=== PATIENT | female | born 1980 | race African-American/Black ===

== ENCOUNTER 2017-06-25 13:23 | Emergency (ER) | payer OTHER ==
[2017-06-25 13:29] VITALS: BP 128/68; PULSE 76; TEMP 98; BMI 34.9
--- NOTE | 2017-06-25 14:19 | PDOC ---
History of Present Illness - General Chief Complaint: Vaginal Bleeding Stated Complaint: VAGINAL BLEEDING (12 WKS ) Time Seen by Provider: 06/25/17 13:58 History Source: Patient Exam Limitations: No Limitations - History of Present Illness Initial Comments: 06/25/17 14:08 36 year old female with no pmhx presented to the ED with 2 days history of vaginal bleeding. pt states that she notices some bleeding yesterday ess than tea spoon , black in coloe , she also mentioned that she saw streak of blood today morning mixed with urine. she reports slight abdominal pain last LLQ , sharp , local 07/05. Pt denies any headache, light headedness, dizziness, recent cold, N/V/D/C. pt denies nay chest pain , sob, cough, heart racing , pt denies nay urinary symptoms , no dysuria, no hematuria. no joint back , back pain or LE swelling. no fever no chills no recent cold. LMP is march , she follow up with Dr Aswhini Grant. previous pregnancies with no complications , full term vaginal deliver and one C- section. pt has an appointement with her commercial escrow officer on Tuesday. PMH: Uterois Fibroid PSH: x 1 Allergies: NKDA Meds: multivitamin with Iron Social: denies any smoking alcohol or drug abuse FH: none Vitals: Vital Signs Period Temp Pulse Resp BP Sys/Georges Pulse Ox Last 24 Hr 98 F 76 18 128/68 99 Physical Exam: General: well nourished in NAD Head: NC/AT , TANYA: MMM, ANIL , EOMI Lungs: CTA B/L , no wheezes, no crackles no accessory muscle use Heart:RRR, No MRG Abdomen: melissa , soft , distended non tender, normal active bowel sounds Neuro: no facial deficit, sensation intact . Legs: +2 DP , no edema Skin: warm and dry Psych: appropriate mood and effect Vaginal exam: streak blood less than tea spoon , black, OS is closed no cervical motion tenderness. 06/25/17 14:19 DD: R.O miscarriage, abruptio placenta unlikley , fibroid bleeding Work UP: CBC . cmp [facility] quantitative abdominal US 06/25/17 14:48 06/25/17 17:39 [place] [id number] Blood type is B positive pt will be discharged home and follow up with her PB/ field services director within one week to repeat BhCG and the US Past History - Past Medical History Allergies/Adverse Reactions: Allergies Allergy/AdvReac Type Severity Reaction Status Date / Time No Known Allergies Allergy Verified 06/25/17 13:29 Home Medications: Ambulatory Orders NK [No Known Home Medication] 12/20/15 Asthma: No Cancer: No Cardiac Disorders: No COPD: No Diabetes: No HTN: No Seizures: No Thyroid Disease: No - Immunization History Immunization Up to Date: Yes - Suicide/Smoking/Psychosocial Hx Smoking History: Never smoked Have you smoked in the past 12 months: No Hx Alcohol Use: No Drug/Substance Use Hx: No Substance Use Type: None Hx Substance Use Treatment: No *Physical Exam - Vital Signs Last Vital Signs Temp Pulse Resp BP Pulse Ox 98 F 76 18 128/68 99 06/25/17 13:26 06/25/17 13:26 06/25/17 13:26 06/25/17 13:26 06/25/17 13:26 ED Treatment Course - LABORATORY CBC & Chemistry Diagram: 06/25/17 15:15 06/25/17 15:15 *DC/Admit/Observation/Transfer Diagnosis at time of Disposition: Threatened in early - Discharge Dispostion Disposition: HOME Admit: No - Referrals - Patient Instructions Additional Instructions: You presented to the ED due to vaginal bleeding , [place] [id number] suitable for gestational age . There is no change in management for now Please follow up with your patient appointment coordinator within one week to repeat BHCG and sonogram, If you develop sever bleeding , fever , sever abdominal pain return to emergency room as soon as possible. - Post Discharge Activity
[2017-06-25 14:58] LABS: HCG,QUALITATIVE URINE POSITIVE
[2017-06-25 15:01] LABS: URINE APPEARANCE SLCLOUDY; URINE BILIRUBIN NEGATIVE (<2.0 mg/dL); URINE BLOOD 3+ (NEGATIVE); URINE COLOR STRAW; URINE GLUCOSE (UA) NEGATIVE (NEGATIVE); URINE KETONE NEGATIVE (NEGATIVE); URINE LEUK ESTERASE NEGATIVE (NEGATIVE); URINE NITRITE NEGATIVE (NEGATIVE); URINE PROTEIN NEGATIVE (NEGATIVE); URINE UROBILINOGEN NEGATIVE mg/dL (0.2-1.0)
[2017-06-25 15:08] LABS: EPI CELLS RARE /HPF (FEW); URINE BACTERIA MODERATE /hpf (NONE SEEN); YEAST RARE
--- NOTE | 2017-06-25 15:12 | PDOC ---
Attending Attestation - Resident Resident Name: Marcellus Pickett - ED Attending Attestation I have performed the following: I have examined & evaluated the patient, The case was reviewed & discussed with the resident, I agree w/resident's findings & plan, Exceptions are as noted - HPI HPI: 06/25/17 15:01 Ms Doyle is a 36 yo with no pmhx presented to the ED with 2 days history of vaginal bleeding/spotting. Not saturating any pads. Pt noted mild LLQ - sharp , local 10. No dysuria. No hematuria. Has ob appt June (previous pregnancies x 2 with no complications) PMH: Uterois Fibroid PSH: x 1 Allergies: NKDA Meds: multivitamin with Iron Social: denies any smoking alcohol or drug abuse FH: none - Physicial Exam PE: 06/25/17 15:12 GENERAL: The patient is in no acute distress. LUNGS: Breath sounds equal, clear to auscultation bilaterally HEART:Regular rate and rhythm, normal S1 and S2 without murmur, rub or gallop. ABDOMEN: Soft, lower abdominal tenderness to palpation PELVIC: per resident, scant dark blood in the vault - Medical Decision Making 06/25/17 15:17 36 yo female presented to emergency department with a complaint of vaginal bleeding. , possibly 3 months . Patient's has scant vaginal bleeding. No hemorrhaging noted from the os. Patient seen mechanically stable. Will do: Labs, blood type, ultrasound Clinical impression: Threatened AB, initial presentation
[2017-06-25 15:19] LABS: BASO % 0.9 % (0-2.0); EOS % 2.7 % (0-4.5); HEMATOCRIT 39.3 % (32.4-45.2); HEMOGLOBIN 13.4 GM/dL (10.7-15.3); LYMPH % 37.6 % (8-40); MCH 29.2 pg (25.7-33.7); MEAN CELL VOLUME 85.9 fl (80-96); MEAN PLT VOLUME 9.1 fl (7.5-11.1); MONO % 6.9 % (3.8-10.2); NEUT % 51.9 % (42.8-82.8); PLATELET COUNT 173 K/MM3 (134-434); RBC 4.57 M/mm3 (3.60-5.2); WHITE BLOOD COUNT 8.2 K/mm3 (4.0-10.0)
[2017-06-25 15:47] LABS: ALBUMIN 4.1 g/dl (3.4-5.0); ANION GAP 6 (8-16); BLOOD UREA NITROGEN 9 mg/dL (7-18); CALCIUM 9.5 mg/dL (8.5-10.1); CHLORIDE 106 mmol/L (98-107); CO2 25 mmol/L (21-32); CREATININE 0.7 mg/dL (0.55-1.02); GLUCOSE,RANDOM 85 mg/dL (74-106); POTASSIUM 4.3 mmol/L (3.5-5.1); SGOT/AST 12 U/L (15-37); SGPT/ALT 23 U/L (12-78); SODIUM 137 mmol/L (136-145); TOT PROT 7.7 g/dl (6.4-8.2)
[2017-06-25 15:48] LABS: ALK PHOS 84 U/L (45-117)
[2017-06-25 15:49] LABS: BILIRUBIN,TOTAL < 0.1 mg/dL (0.2-1.0)
[2017-06-25 15:52] LABS: INR 0.98 (0.82-1.09); PROTHROMBIN TIME (PATIENT) 11.1 SEC (9.98-11.88)
== END 2017-06-25 17:49 | disposition home or self-care (01) ==
LOC: JER 13:23
DX: O26.891 Other specified pregnancy related conditions, first trimester (principal); O20.0 Threatened abortion; O34.11 Maternal care for benign tumor of corpus uteri, first trimester; D25.9 Leiomyoma of uterus, unspecified; Z3A.01 Less than 8 weeks gestation of pregnancy
CPT/HCPCS: 36415; 76801-TC; 80053; 81003; 81015; 84702; 84703; 85025; 85610; 86850; 86900; 86901; 99282-25

== ENCOUNTER 2017-07-01 22:04 | Emergency (ER) | payer OTHER ==
[2017-07-01 22:25] VITALS: BMI 35.9
--- NOTE | 2017-07-01 23:56 | PDOC ---
History of Present Illness - History of Present Illness Initial Comments: 07/02/17 01:24 Patient is a 36 year old female, 7 weeks , with a significant past medical history of Fibroids, who presents to the ED with complaints of vaginal spotting that began 1 week ago while at home. Patient reports seeing her senior medical billing specialist tuesday morning who did blood work and stated everything was normal. She was also seen in the ED 1 week ago and diagnosed with a threatened . She presented to the ED today as she noticed she was passing some clots which was new. While in the ED, the pt reveals that she has passed a large peice of tissue through her vagina. Denies chest pain, Sob, headache, dizziness, weakness. Denies nausea, vomiting. Denies fevers, chills. Denies diarrhea, constipation, dysuria, hematuria. Denies any other symptoms. Allergies: None Social history: No smoking. No alcohol. No illicit drugs. Surgical history: PMD: None senior medical billing specialist: Dr. Patterson <Omer Glass - Last Filed: 07/02/17 02:25> <Angelica Viramontes - Last Filed: 07/03/17 22:09> - General Chief Complaint: Vaginal Bleeding Stated Complaint: 6 WEEK PREG, VAGINAL BLEEDING Time Seen by Provider: 07/01/17 23:54 Past History - Past Medical History Asthma: No Cancer: No Cardiac Disorders: No COPD: No Diabetes: No HTN: No Seizures: No Thyroid Disease: No - Reproductive History (#): 3 Para: 2 - Immunization History Immunization Up to Date: Yes - Suicide/Smoking/Psychosocial Hx Smoking History: Never smoked Have you smoked in the past 12 months: No Information on smoking cessation initiated: No Hx Alcohol Use: No Drug/Substance Use Hx: No Substance Use Type: None Hx Substance Use Treatment: No <Omer Glass - Last Filed: 07/02/17 02:25> <Angelica Viramontes - Last Filed: 07/03/17 22:09> - Past Medical History Allergies/Adverse Reactions: Allergies Allergy/AdvReac Type Severity Reaction Status Date / Time No Known Allergies Allergy Verified 07/01/17 22:25 Home Medications: Ambulatory Orders NK [No Known Home Medication] 12/20/15 Review of Systems - Review of Systems Comments:: 07/02/17 01:25 GENERAL/CONSTITUTIONAL: No fever or chills. No weakness. HEAD, EYES, EARS, NOSE AND THROAT: No change in vision. No ear pain or discharge. No sore throat. GASTROINTESTINAL: nausea, vomiting, diarrhea or constipation. GENITOURINARY: +Vaginal bleeding No dysuria, frequency, or change in urination. CARDIOVASCULAR: No chest pain or shortness of breath. RESPIRATORY: No cough, wheezing, or hemoptysis. MUSCULOSKELETAL: No joint or muscle swelling or pain. No neck or back pain. SKIN: No rash NEUROLOGIC: No headache, vertigo, loss of consciousness, or change in strength/ sensation. ENDOCRINE: No increased thirst. No abnormal weight change. HEMATOLOGIC/LYMPHATIC: No anemia, easy bleeding, or history of blood clots. ALLERGIC/IMMUNOLOGIC: No hives or skin allergy. <Nassef,Yomna - Last Filed: 07/02/17 02:25> *Physical Exam - Vital Signs Last Vital Signs Temp Pulse Resp BP Pulse Ox 99.3 F 120 H 18 141/90 100 07/01/17 22:23 07/01/17 22:23 07/01/17 22:23 07/01/17 22:23 07/01/17 22:23 - Physical Exam Comments: 07/02/17 01:25 GENERAL: Awake, alert, and fully oriented, in no acute distress HEAD: No signs of trauma EYES: PERRLA, EOMI, sclera anicteric, conjunctiva clear ENT: Auricles normal inspection, hearing grossly normal, nares patent, oropharynx clear without exudates. Moist mucosa NECK: Normal ROM, supple, no lymphadenopathy, JVD, or masses LUNGS: Breath sounds equal, clear to auscultation bilaterally. No wheezes, and no crackles HEART: Regular rate and rhythm, normal S1 and S2, no murmurs, rubs or gallops ABDOMEN: Soft, nontender, normoactive bowel sounds. No guarding, no rebound. No masses BORING MILL OPERATOR: dark blood in vault, no pooling on speculum or active bleeding from os. Os is closed. No midline or adnexal ttp. At the bedside, pt reveals a 5cm oval tissue that she passed which appears to be the fetus, EXTREMITIES: Normal range of motion, no edema. No clubbing or cyanosis. No cords, erythema, or tenderness NEUROLOGICAL: Normal speech, cranial nerves intact, negative pronator drift, 5/ 5 strength in all 4 extremities, normal sensation to light touch in all 4 extremities, normal cerebellar exam, normal gait, normal reflexes and tone SKIN: Warm, Dry, normal turgor, no rashes or lesions noted. <HowardcyOmer - Last Filed: 07/02/17 02:25> - Vital Signs Last Vital Signs Temp Pulse Resp BP Pulse Ox 98.2 F 78 19 124/82 100 07/02/17 02:14 07/02/17 02:14 07/02/17 02:14 07/02/17 02:14 07/01/17 22:23 <Angelica Viramontes - Last Filed: 07/03/17 22:09> ED Treatment Course - LABORATORY CBC & Chemistry Diagram: 07/02/17 00:10 07/02/17 00:10 <RenettacyOmer - Last Filed: 07/02/17 02:25> - LABORATORY CBC & Chemistry Diagram: 07/02/17 00:10 07/02/17 00:10 - ADDITIONAL ORDERS Additional order review: Laboratory Results 07/02/17 07/02/17 07/02/17 01:30 00:10 00:10 PT with INR 11.60 INR 1.03 PTT (Actin FS) 31.6 Sodium 143 Potassium 4.4 Chloride 109 H Carbon Dioxide 27 Anion Gap 7 L BUN 8 Creatinine 0.8 Creat Clearance w eGFR > 60 Random Glucose 123 H Calcium 9.1 Total Bilirubin < 0.1 L AST 12 L ALT 23 Alkaline Phosphatase 86 Total Protein 7.4 Albumin 3.8 Beta HCG, Quant 17930.2 Urine Color Ltyellow Urine Appearance Slcloudy Urine pH 7.0 Ur Specific [place] 1.011 Urine Protein Negative Urine Glucose (UA) Negative Urine Ketones Negative Urine Blood 3+ H Urine Nitrite Negative Urine Bilirubin Negative Urine Urobilinogen Negative Ur Leukocyte Esterase Trace Urine WBC (Auto) 13 Urine RBC (Auto) 1371 Ur Epithelial Cells Rare Urine Mucus Rare 07/02/17 00:10 RBC 4.16 MCV 85.0 MCHC 34.7 RDW 14.2 MPV 9.0 Neutrophils % 66.2 D Lymphocytes % 24.8 D Monocytes % 7.2 Eosinophils % 1.2 Basophils % 0.6 <Angelica Viramontes - Last Filed: 07/03/17 22:09> Medical Decision Making - Medical Decision Making 07/02/17 01:25 36-year-old female presents the emergency department with likely complete . Initially tachycardic to 120 on presentation, currently heart rate on my exam is 98. Large piece of tissue that patient passed at the bedside is likely the embryo, consistent with embryonic demise. Cervix is closed. Will obtain labs, ultrasound for further evaluation. Type and screen during patient' s previous visit was B+. Discussed the likely diagnosis of miscarriage with the patient - she appears to be coping with the news for now. Will reassess. 07/02/17 02:25 Labs/UA unremarkable. Vitals have normalized. US done but study has not been sent to [facility]. Upon speaking with our US medicine tech, they have been unable to send any US studies to [facility] for the last hour. Radiology is currently attempting to troubleshoot the situation. I attempted to send the study on both of our PACS computers but am receiving a "unable to connect to send patient observer" message. Pt has been signed out to Dr. Viramontes for f/u on US, re-eval and dispo. <Omer Glass - Last Filed: 07/02/17 02:25> - Medical Decision Making 07/02/17 04:14 Patient Name: BOOKER GOMEZ THIS IS A PRELIMINARY REPORT FROM IMAGING INSTRUCTIONAL DESIGN MANAGER EXAM: Obstetrical ultrasound, less than 14 weeks IMAGES:32 DATE OF EXAM: 2017-07-02 01:14:02 REASON FOR EXAM: Heavy vaginal bleeding. As per report, the patient had an intrauterine at 6 weeks and 6 days on a prior ultrasound from June 25, 2017. COMPARISON: None Findings: 5.1 cm partially calcified uterine fibroid. Endometrial stripe is normal in thickness at 7 mm. Mild fluid in the cervix. No visible intrauterine gestational sac. Left ovarian cysts. Right ovary appears normal. Vascular flow noted in both ovaries. No significant free pelvic fluid. THIS DOCUMENT HAS BEEN ELECTRONICALLY SIGNED 07/02/17 04:16 Pt is stable for discharge. She is RH+ and she will follow up with her PIPE ORGAN TUNER AND REPAIRER, who will make sure with her that her HCG returns to zero. <Angelica Viramontes - Last Filed: 07/03/17 22:09> *DC/Admit/Observation/Transfer <Omer Glass - Last Filed: 07/02/17 02:25> - Discharge Dispostion Admit: No <Viramontes,Angelica - Last Filed: 07/03/17 22:09> Diagnosis at time of Disposition: Complete - Discharge Dispostion Disposition: HOME Condition at time of disposition: Stable - Referrals Referrals: Suma Yusuf MD [Staff Physician] - - Patient Instructions Printed Discharge Instructions: DI for Miscarriage Additional Instructions: Follow with your securities broker to redraw BHCG blood test until it goes down to zero
[2017-07-02 00:23] LABS: BASO % 0.6 % (0-2.0); EOS % 1.2 % (0-4.5); HEMATOCRIT 35.4 % (32.4-45.2); HEMOGLOBIN 12.3 GM/dL (10.7-15.3); LYMPH % 24.8 % (8-40); MCH 29.5 pg (25.7-33.7); MCHC 34.7 g/dl (32.0-36.0); MONO % 7.2 % (3.8-10.2); NEUT % 66.2 % (42.8-82.8); PLATELET COUNT 193 K/MM3 (134-434); RBC 4.16 M/mm3 (3.60-5.2); RDW 14.2 % (11.6-15.6); WHITE BLOOD COUNT 10.5 K/mm3 (4.0-10.0)
[2017-07-02 00:35] LABS: INR 1.03 (0.82-1.09); PROTHROMBIN TIME (PATIENT) 11.6 SEC (9.98-11.88)
[2017-07-02 00:37] LABS: ACTIVATED PTT 31.6 SECONDS (26.9-34.4)
[2017-07-02 00:54] LABS: ALBUMIN 3.8 g/dl (3.4-5.0); ANION GAP 7 (8-16); BLOOD UREA NITROGEN 8 mg/dL (7-18); CALCIUM 9.1 mg/dL (8.5-10.1); CHLORIDE 109 mmol/L (98-107); CO2 27 mmol/L (21-32); CREATININE 0.8 mg/dL (0.55-1.02); GLUCOSE,RANDOM 123 mg/dL (74-106); POTASSIUM 4.4 mmol/L (3.5-5.1); SGOT/AST 12 U/L (15-37); SGPT/ALT 23 U/L (12-78); SODIUM 143 mmol/L (136-145); TOT PROT 7.4 g/dl (6.4-8.2)
[2017-07-02 01:10] LABS: ALK PHOS 86 U/L (45-117)
[2017-07-02 01:15] LABS: BILIRUBIN,TOTAL < 0.1 mg/dL (0.2-1.0)
[2017-07-02 01:46] LABS: URINE APPEARANCE SLCLOUDY; URINE BILIRUBIN NEGATIVE (<2.0 mg/dL); URINE BLOOD 3+ (NEGATIVE); URINE COLOR LTYELLOW; URINE GLUCOSE (UA) NEGATIVE (NEGATIVE); URINE KETONE NEGATIVE (NEGATIVE); URINE LEUK ESTERASE TRACE (NEGATIVE); URINE NITRITE NEGATIVE (NEGATIVE); URINE PROTEIN NEGATIVE (NEGATIVE); URINE UROBILINOGEN NEGATIVE mg/dL (0.2-1.0)
[2017-07-02 01:59] LABS: EPI CELLS RARE /HPF (FEW); URINE MUCUS RARE
[2017-07-02 02:15] VITALS: BP 124/82; PULSE 78; TEMP 98.2
--- NOTE | 2017-07-05 16:51 | PATH ---
Surgical Pathology Report Patient Name: BOOKER GOMEZ [facility]. Rec. #: [id number] /Age/Gender: 1980 (Age: 36) / F Account: [id number] Location: EMERGENCY ROOM Taken: 07/01/2017 Received: 07/04/2017 Reported: 07/05/2017 Physicians: PHYSICIAN EMERGENCY DEPT Specimen(s) Received PRODUCTS OF CONCEPTION Clinical History Vaginal bleeding Final Diagnosis PRODUCTS OF CONCEPTION, PASSAGE: IMMATURE CHORIONIC VILLI AND DECIDUA CONSISTENT WITH PRODUCTS OF CONCEPTION. Electronically Signed Ashanti Justice M.D. Gross Description Received fresh, labeled with the patient's name and indicated on the requisition to be products of conception, is an 8.5 x 7.0 x 1.8 cm aggregate of jiménez-red soft tissue fragments. Villous tissue is identified. No definite somatic tissue is identified. A sales representative metals portion is submitted in one cassette. /07/04/2017 saudi07/04/2017
== END 2017-07-02 04:35 | disposition home or self-care (01) ==
LOC: JER 22:04
DX: O26.891 Other specified pregnancy related conditions, first trimester (principal); O03.9 Complete or unspecified spontaneous abortion without complication; Z3A.01 Less than 8 weeks gestation of pregnancy; N83.201 Unspecified ovarian cyst, right side
CPT/HCPCS: 36415; 76817-TC; 80053; 81003; 81015; 84702; 85025; 85610; 85730; 87086; 88305-TC; 99281-25

== ENCOUNTER 2018-06-28 04:30 | Inpatient (IN) | payer OTHER ==
--- NOTE | 2018-06-28 05:23 | HP ---
Past Medical History - Primary Care Physician PCP:: Sea Phan - Admission Chief Complaint: 39 weeks, labor , previous c/s, AMA History of Present Illness: 37 yo f 39 weeks with hx of previous c/s and , c/o of contraction , cx 8 cmm 100 vx -3 mi , bulging , FHR cat 1, regular contraction History Source: Patient Limitations to Obtaining History: No Limitations - Past Medical History ...: 4 ...Para: 2 ...Term: 2 ...: 0 ...Spon : 0 ...Induced : 0 ...Multiple Gestation: 0 ... Weeks Gestation by Dates: 39.2 ...EDC by Sono: 07/02/18 Infectious Disease: Yes: Other (HEP B surface antigen positve) - Past Surgical History Past Surgical History: Yes: Hx Myomectomy: No Hx Transabdominal Cerclage: No - Smoking History Smoking history: Never smoked Have you smoked in the past 12 months: No - Alcohol/Substance Use Hx Alcohol Use: No History of Substance Use: reports: None - Social History Usual Living Arrangement: Yes: With Spouse History of Recent Travel: No Home Medications - Allergies Allergies/Adverse Reactions: Allergies Allergy/AdvReac Type Severity Reaction Status Date / Time No Known Allergies Allergy Verified 06/11/18 20:45 - Home Medications Home Medications: Ambulatory Orders Ferrous Sulfate [Iron] 1 tab PO DAILY 06/11/18 Pnv,Calcium 72/Iron/Folic Acid [ Plus Tablet] 1 tab PO DAILY 06/11/18 Review of Systems - Review of Systems Constitutional: reports: No Symptoms Eyes: reports: No Symptoms HENT: reports: No Symptoms Neck: reports: No Symptoms Cardiovascular: reports: No Symptoms Respiratory: reports: No Symptoms Gastrointestinal: reports: No Symptoms Genitourinary: reports: No Symptoms Musculoskeletal: reports: No Symptoms Integumentary: reports: No Symptoms Neurological: reports: No Symptoms Endocrine: reports: No Symptoms Hematology/Lymphatic: reports: No Symptoms Psychiatric: reports: No Symptoms Physical Exam - Maternity Constitutional: Yes: Well Nourished, No Distress, Calm Eyes: Yes: WNL, Conjunctiva Clear, EOM Intact HENT: Yes: WNL, Atraumatic, Normocephalic Neck: Yes: WNL, Supple, Trachea Midline Cardiovascular: Yes: WNL, Regular Rate and Rhythm Breast(s): Yes: WNL - Abdominal Exam/OB Fundal Height: 40 Number of Fetuses: Single Presentation: Vertex Contractions: Yes Regularity: Regular Intensity: Mod/Strong Monitor Mode: External Heart Rate (range): 13o Category: I Accelerations: Uniform Decelerations: None - Vaginal Exam/OB Vaginal Bleediing: Bloody Show Speculum Exam: No Dilatation (cm): 8 cm Effacement (%): 100 Amniotic Membrane Status: Bulging Presentation: Vertex/Position Station: -3 - Physical Exam Musculoskeletal: Yes: WNL Extremities: Yes: WNL Edema: Yes Edema: LLE: Trace, RLE: Trace Deep Tendon Reflex Grade: Normal +2 Psychiatric: Yes: WNL Hemorrhage Risk Assessment - Risk Factors Medium Risk Factors: Yes: Prior , uterine surgery,or multiple laparotomies Risk Score: 1 Risk Level: Medium Risk Problem List - Problems (1) with 39 completed weeks gestation Code(s): Z3A.39 - 39 WEEKS GESTATION OF (2) Previous section complicating Code(s): O34.219 - MATERNAL CARE FOR UNSP TYPE SCAR FROM PREVIOUS DEL (3) Advanced maternal age (AMA) in Code(s): CTR1050 - (4) Hep B complicating Code(s): O98.419 - VIRAL HEPATITIS COMPLICATING , UNSP TRIMESTER; B19.10 - UNSPECIFIED VIRAL HEPATITIS B WITHOUT HEPATIC COMA (5) Labor established Code(s): [id number] - Assessment/Plan plan admit [facility] nursery notified of HEP B positve , anticipate risks discussed
[2018-06-28] MEDS: DEXTROSE 5%-LACTATED RINGERS 1,000 ML IV SCH (05:30)
[2018-06-28 05:57] VITALS: BMI 37.8
[2018-06-28] MEDS ORDERED: PROMETHAZINE HCL 25 MG/1 ML VIAL IVPUSH ONE (06:00)
[2018-06-28] MEDS ORDERED: BUTORPHANOL TARTRATE 1 MG/ML VIAL IVPUSH PRN (06:00)
--- NOTE | 2018-06-28 06:00 | PN ---
Progress Note (short form) - Note Progress Note: cx 8 cm 100 vx -3 . bulging membrane ,arom, clear , fhr cat 1 Problem List - Problems (1) with 39 completed weeks gestation Code(s): Z3A.39 - 39 WEEKS GESTATION OF (2) Previous section complicating Code(s): O34.219 - MATERNAL CARE FOR UNSP TYPE SCAR FROM PREVIOUS DEL (3) Advanced maternal age (AMA) in Code(s): [id number] - (4) Hep B complicating Code(s): O98.419 - VIRAL HEPATITIS COMPLICATING , UNSP TRIMESTER; B19.10 - UNSPECIFIED VIRAL HEPATITIS B WITHOUT HEPATIC COMA (5) Labor established Code(s): [id number] -
[2018-06-28 06:26] LABS: BASO % 0.4 % (0-2.0); EOS % 0.3 % (0-4.5); HEMOGLOBIN 13.4 GM/dL (10.7-15.3); LYMPH % 13.8 % (8-40); MCH 31.6 pg (25.7-33.7); MCHC 34.4 g/dl (32.0-36.0); MEAN CELL VOLUME 91.9 fl (80-96); MEAN PLT VOLUME 10.4 fl (7.5-11.1); MONO % 5.5 % (3.8-10.2); PLATELET COUNT 156 K/MM3 (134-434); RBC 4.25 M/mm3 (3.60-5.2); RDW 13.6 % (11.6-15.6); WHITE BLOOD COUNT 10.2 K/mm3 (4.0-10.0)
[2018-06-28 06:37] LABS: INR 0.93 (0.83-1.09)
[2018-06-28 06:40] LABS: ACTIVATED PTT 31.5 SECONDS (25.2-36.5)
[2018-06-28 06:45] LABS: ANION GAP 8 MMOL/L (8-16); BLOOD UREA NITROGEN 7 mg/dL (7-18); CALCIUM 9.2 mg/dL (8.5-10.1); CHLORIDE 106 mmol/L (98-107); CO2 21 mmol/L (21-32); CREATININE 0.5 mg/dL (0.55-1.3); GLUCOSE,RANDOM 87 mg/dL (74-106); SODIUM 136 mmol/L (136-145)
--- NOTE | 2018-06-28 07:42 | PN ---
Progress Note (short form) - Note Progress Note: cx 8 cm 80 vx -3 mr, clear , fhr cat 1, wants epidural Problem List - Problems (1) with 39 completed weeks gestation Code(s): Z3A.39 - 39 WEEKS GESTATION OF (2) Previous section complicating Code(s): O34.219 - MATERNAL CARE FOR UNSP TYPE SCAR FROM PREVIOUS DEL (3) Advanced maternal age (AMA) in Code(s): [id number] - (4) Hep B complicating Code(s): O98.419 - VIRAL HEPATITIS COMPLICATING , UNSP TRIMESTER; B19.10 - UNSPECIFIED VIRAL HEPATITIS B WITHOUT HEPATIC COMA (5) Labor established Code(s): [id number] -
[2018-06-28] MEDS: ELECTROLYTE-148 SOLN 1,000 ML IV SCH (07:50)
[2018-06-28] MEDS ORDERED: FENTANYL/BUPIVACAINE/NS/PF - PCEA - 50 ML DISP.SYRIN EP ONE (08:05)
[2018-06-28] MEDS ORDERED: BUPIVACAINE HCL/PF 0.25% (2.5MG/ML) 10 ML VIAL ONE (08:08)
[2018-06-28] MEDS ORDERED: NALOXONE HCL 0.4 MG/ML VIAL IVPUSH PRN (08:40)
[2018-06-28] MEDS: FENTANYL/BUPIVACAINE/NS/PF - PCEA - 50 ML DISP.SYRIN EP SCH (08:45)
[2018-06-28] MEDS ORDERED: OXYTOCIN 30 UNITS in 0.9% NS 30 UNIT/500 ML INFUS.BAG IVPB ONE (09:04)
--- NOTE | 2018-06-28 09:06 | PN ---
Progress Note (short form) - Note Progress Note: received epidural anesthesia, cx 8 cm 80, vx -3 , fhr cat 1, contraction irregular, spacing, low dose pitovin discussed with patient, risks explained , agreed will start pitocin ,get contraction regulated and will revaluate Problem List - Problems (1) with 39 completed weeks gestation Code(s): Z3A.39 - 39 WEEKS GESTATION OF (2) Previous section complicating Code(s): O34.219 - MATERNAL CARE FOR UNSP TYPE SCAR FROM PREVIOUS DEL (3) Advanced maternal age (AMA) in Code(s): [id number] - (4) Hep B complicating Code(s): O98.419 - VIRAL HEPATITIS COMPLICATING , UNSP TRIMESTER; B19.10 - UNSPECIFIED VIRAL HEPATITIS B WITHOUT HEPATIC COMA (5) Labor established Code(s): [id number] -
[2018-06-28] MEDS: OXYTOCIN 30 UNITS in 0.9% NS 30 UNIT/500 ML INFUS.BAG IVPB SCH (09:30)
--- NOTE | 2018-06-28 11:57 | PN ---
Progress Note (short form) - Note Progress Note: cx 9 cm 80 vx -1 op , fhr cat 1, contraction q 2 to 3 min , anticipate vaginal delivery, will revaluate again Problem List - Problems (1) with 39 completed weeks gestation Code(s): Z3A.39 - 39 WEEKS GESTATION OF (2) Previous section complicating Code(s): O34.219 - MATERNAL CARE FOR UNSP TYPE SCAR FROM PREVIOUS DEL (3) Advanced maternal age (AMA) in Code(s): [id number] - (4) Hep B complicating Code(s): O98.419 - VIRAL HEPATITIS COMPLICATING , UNSP TRIMESTER; B19.10 - UNSPECIFIED VIRAL HEPATITIS B WITHOUT HEPATIC COMA (5) Labor established Code(s): [id number] -
[2018-06-28] MEDS ORDERED: AMPICILLIN - 2 GM in SODIUM CHLORIDE 100 ML IVPB ONE (13:20)
[2018-06-28] MEDS ORDERED: AMPICILLIN SODIUM 2 GM VIAL ONE (13:23)
[2018-06-28] MEDS ORDERED: GENTAMICIN SO4 80 MG/2 ML VIAL ONE (13:24)
[2018-06-28] MEDS ORDERED: METHYLERGONOVINE MALEATE 0.2 MG/1 ML AMP IM PRN (13:52)
[2018-06-28] MEDS ORDERED: IBUPROFEN 800 MG/8 ML IJ IVPB PRN (13:52)
[2018-06-28] MEDS ORDERED: diphenhydrAMINE HCL 25 MG CAPSULE (FP) PO PRN (13:52)
[2018-06-28] MEDS ORDERED: oxyCODONE HCL 5 MG TABLET PO PRN (13:52)
[2018-06-28] MEDS ORDERED: WITCH HAZEL 50% (TUCKS) 40 PAD/JAR PAD TP PRN (13:52)
[2018-06-28] MEDS ORDERED: BENZOCAINE 20% 57 GM BOTTLE TP PRN (13:52)
[2018-06-28] MEDS ORDERED: BENZOCAINE 28 GM HEMORRHOIDAL OINTMENT PR PRN (13:52)
--- NOTE | 2018-06-28 13:52 | PN ---
Progress Note (short form) - Note Progress Note: has fever 101, cx 9 cm vx -1 , no descent with pushing , advised c/s , FHR 160/ min Problem List - Problems (1) with 39 completed weeks gestation Code(s): Z3A.39 - 39 WEEKS GESTATION OF (2) Previous section complicating Code(s): O34.219 - MATERNAL CARE FOR UNSP TYPE SCAR FROM PREVIOUS DEL (3) Advanced maternal age (AMA) in Code(s): [id number] - (4) Hep B complicating Code(s): O98.419 - VIRAL HEPATITIS COMPLICATING , UNSP TRIMESTER; B19.10 - UNSPECIFIED VIRAL HEPATITIS B WITHOUT HEPATIC COMA (5) Labor established Code(s): [id number] -
[2018-06-28] MEDS ORDERED: LIDO 2%/EPI 1:200000 PRESRVFRE (20 ML SDVIAL) ONE (13:54)
[2018-06-28] MEDS ORDERED: morphine SULFATE/Preservative Free 0.5 MG/ML (1cc Syringe) ONE ×4 (14:19)
[2018-06-28] MEDS: OXYTOCIN 20 UNITS in 0.9% NS 20 UNIT/1,000 ML INFUS.BAG IV SCH ×2 (14:30→22:20)
[2018-06-28] MEDS ORDERED: GENTAMICIN 80 MG PREMIXED IVPB 80 MG/100 ML BAG IVPB ONE (14:30)
[2018-06-28 14:56] LABS: ARTERIAL BLD GAS O2 SATURATION 18.9 % (95-98); ARTERIAL BLOOD GAS PCO2 59.2 mmHg (35-45); ARTERIAL BLOOD GAS pH 7.28 (7.35-7.45)
[2018-06-28 14:59] LABS: VENOUS PC02 45.8 mmHg (41-51); VENOUS PH 7.34 (7.31-7.41); VENOUS PO2 26.9 mmHg (30-40)
[2018-06-28 15:05] LABS: ARTERIAL BLOOD GAS PO2 13.5 mmHg (80-105)
--- NOTE | 2018-06-28 15:09 | SURG ---
Surgery Side Door Worker Note Side Door Worker: Guicho Franz PA-C Date of Service: 06/28/18 Diagnosis: Failure to progress with labor, associated fever Procedure: c section I was present for the entirety of the operative procedure. For further detail, please refer to operative report. Visit type - Case Type Case Type: Scheduled - Emergency Emergency Visit: No - New patient This patient is new to me today: Yes Date on this admission: 06/28/18
[2018-06-28] MEDS ORDERED: ACETAMINOPHEN 1000 MG/100 ML VIAL (NON FORMULARY) IVPB PRN (16:05)
[2018-06-28] MEDS ORDERED: ACETAMINOPHEN INJECTION 100 ML IVPB ONE (16:09)
[2018-06-28] MEDS ORDERED: GENTAMICIN 80 MG PREMIXED IVPB 80 MG/100 ML BAG IVPB SCH (18:00)
[2018-06-28] MEDS: CEFAZOLIN 1 GM/D5W 1 GM/50 ML BAG IVPB SCH (18:28)
[2018-06-28] MEDS: GENTAMICIN 80 MG PREMIXED IVPB 80 MG/100 ML BAG IVPB SCH (22:02)
[2018-06-29] MEDS: CEFAZOLIN 1 GM/D5W 1 GM/50 ML BAG IVPB SCH ×3 (01:42→17:33)
[2018-06-29] MEDS: GENTAMICIN 80 MG PREMIXED IVPB 80 MG/100 ML BAG IVPB SCH ×3 (06:02→22:04)
[2018-06-29 07:20] LABS: BASO % 0.3 % (0-2.0); EOS % 0.2 % (0-4.5); HEMATOCRIT 31.2 % (32.4-45.2); HEMOGLOBIN 10.6 GM/dL (10.7-15.3); LYMPH % 11.5 % (8-40); MCH 31.2 pg (25.7-33.7); MEAN CELL VOLUME 91.6 fl (80-96); MEAN PLT VOLUME 9.5 fl (7.5-11.1); PLATELET COUNT 133 K/MM3 (134-434); RDW 14.1 % (11.6-15.6); WHITE BLOOD COUNT 13.7 K/mm3 (4.0-10.0)
--- NOTE | 2018-06-29 08:28 | PN ---
Post Progress Note Post Day: 1 Type of Delivery: Repeat C/S Vital Signs: Vital Signs Temperature 99 F 06/29/18 06:00 Pulse Rate 105 H 06/29/18 06:00 Respiratory Rate 20 06/29/18 07:00 Blood Pressure 119/72 06/29/18 06:00 O2 Sat by Pulse Oximetry (%) 100 06/28/18 16:15 Uterus: Yes: Fundus below umbilicus Incision: Yes: Dressing dry and intact Abdomen/GI: Yes: Abdomen soft Lochia: Yes: Rubra Lochia, amount: Small Extremities: Yes: Calves non-tender Perineum: Yes: Intact Activity: Ambulating (Tolerating po. No fevers/chills) - Labs Labs: CBC WBC 13.7 K/mm3 (4.0-10.0) H 06/29/18 06:30 RBC 3.40 M/mm3 (3.60-5.2) L 06/29/18 06:30 Hgb 10.6 GM/dL (10.7-15.3) L 06/29/18 06:30 Hct 31.2 % (32.4-45.2) L D 06/29/18 06:30 MCV 91.6 fl (80-96) 06/29/18 06:30 MCH 31.2 pg (25.7-33.7) 06/29/18 06:30 MCHC 34.0 g/dl (32.0-36.0) 06/29/18 06:30 RDW 14.1 % (11.6-15.6) 06/29/18 06:30 Plt Count 133 K/MM3 (134-434) L 06/29/18 06:30 MPV 9.5 fl (7.5-11.1) 06/29/18 06:30 Absolute Neuts (auto) 11.2 K/mm3 (1.5-8.0) H 06/29/18 06:30 Neutrophils % 82.0 % (42.8-82.8) 06/29/18 06:30 Lymphocytes % 11.5 % (8-40) 06/29/18 06:30 Monocytes % 6.0 % (3.8-10.2) 06/29/18 06:30 Eosinophils % 0.2 % (0-4.5) 06/29/18 06:30 Basophils % 0.3 % (0-2.0) 06/29/18 06:30 Nucleated RBC % 0 % (0-0) 06/29/18 06:30 Assessment/Plan 37yo s/p RLTCS, failed , POD#1 Routine PP care OOB, ambulate AM labs pending D/C [place] today Afebrile now Anticipate d/c to home by POD#4 Gordy Valero MD
[2018-06-29] MEDS ORDERED: BISACODYL 10 MG SUPP.RECT RC PRN (13:52)
--- NOTE | 2018-06-29 15:05 | PN ---
Progress Note (short form) - Note Progress Note: Anesthesia post op/pain Pt seen and examined S:alert and awake O: CBC, BMP 06/29/18 06:30 06/28/18 05:20 Vital Signs Temperature 98 F 06/29/18 14:00 Pulse Rate 104 H 06/29/18 14:00 Respiratory Rate 20 06/29/18 14:00 Blood Pressure 128/59 L 06/29/18 14:00 O2 Sat by Pulse Oximetry (%) 100 06/28/18 16:15 A/P Current Active Problems Advanced maternal age (AMA) in (Acute) Hep B complicating (Acute) Labor established (Acute) with 39 completed weeks gestation (Acute) Previous section complicating (Acute) s/p c section comfortable doing well post op Rj Damico MD
[2018-06-29] MEDS: SIMETHICONE 80 MG TAB.CHEW (FP) PO PRN (16:22)
[2018-06-29] MEDS: oxyCODONE HCL 5 MG TABLET PO PRN (17:46)
[2018-06-29] MEDS: IBUPROFEN 600 MG TABLET (FP) PO PRN (17:47)
[2018-06-29] MEDS: DEXTROSE 5%-LACTATED RINGERS 1,000 ML IV SCH ×2 (21:33→21:36)
[2018-06-29] MEDS: FENTANYL/BUPIVACAINE/NS/PF - PCEA - 50 ML DISP.SYRIN EP SCH (21:34)
[2018-06-29] MEDS: OXYTOCIN 30 UNITS in 0.9% NS 30 UNIT/500 ML INFUS.BAG IVPB SCH (21:35)
[2018-06-29] MEDS: ELECTROLYTE-148 SOLN 1,000 ML IV SCH (21:35)
[2018-06-30] MEDS: CEFAZOLIN 1 GM/D5W 1 GM/50 ML BAG IVPB SCH ×3 (02:08→17:49)
[2018-06-30] MEDS: SIMETHICONE 80 MG TAB.CHEW (FP) PO PRN ×2 (04:49→14:12)
[2018-06-30] MEDS: oxyCODONE HCL 5 MG TABLET PO PRN (04:51)
[2018-06-30] MEDS: IBUPROFEN 600 MG TABLET (FP) PO PRN ×2 (04:51→14:07)
[2018-06-30] MEDS: GENTAMICIN 80 MG PREMIXED IVPB 80 MG/100 ML BAG IVPB SCH ×3 (06:12→22:16)
--- NOTE | 2018-06-30 07:39 | PN ---
Progress Note (short form) - Note Progress Note: pod 2 s/p c/s , chorioamnionitis, ambulating, passing gas, tolerating diet CBC, BMP 06/29/18 06:30 06/28/18 05:20 abdomen soft, no distension, no cva , uterus firm, non tender lochia mild , no odor no calf tenderness Last Vital Signs Temp Pulse Resp BP Pulse Ox 98.0 F 96 H 18 98/65 100 06/30/18 06:00 06/29/18 22:00 06/29/18 22:00 06/29/18 22:00 06/28/18 16:15 plan cont iv antibiotic for 1 more day cbc revaluate Problem List - Problems (1) with 39 completed weeks gestation Code(s): Z3A.39 - 39 WEEKS GESTATION OF (2) Previous section complicating Code(s): O34.219 - MATERNAL CARE FOR UNSP TYPE SCAR FROM PREVIOUS DEL (3) Advanced maternal age (AMA) in Code(s): YZX9413 - (4) Hep B complicating Code(s): O98.419 - VIRAL HEPATITIS COMPLICATING , UNSP TRIMESTER; B19.10 - UNSPECIFIED VIRAL HEPATITIS B WITHOUT HEPATIC COMA (5) Labor established Code(s): XJD9499 -
[2018-06-30] MEDS ORDERED: SODIUM CHLORIDE NASAL SPRAY 44 ML BOTTLE NS PRN (19:43)
[2018-06-30] MEDS ORDERED: SENNOSIDES/DOCUSATE COMBO (SENNA PLUS) TABLET (UD) PO PRN (22:00)
[2018-07-01] MEDS: CEFAZOLIN 1 GM/D5W 1 GM/50 ML BAG IVPB SCH (02:25)
[2018-07-01] MEDS: SIMETHICONE 80 MG TAB.CHEW (FP) PO PRN ×2 (03:18→13:19)
[2018-07-01] MEDS: IBUPROFEN 600 MG TABLET (FP) PO PRN ×2 (03:19→13:19)
[2018-07-01] MEDS: GENTAMICIN 80 MG PREMIXED IVPB 80 MG/100 ML BAG IVPB SCH (06:14)
[2018-07-01 07:38] LABS: BASO % 0.4 % (0-2.0); EOS % 1.1 % (0-4.5); HEMATOCRIT 26.9 % (32.4-45.2); HEMOGLOBIN 9.4 GM/dL (10.7-15.3); LYMPH % 22.4 % (8-40); MCH 31.5 pg (25.7-33.7); MCHC 34.8 g/dl (32.0-36.0); MEAN CELL VOLUME 90.7 fl (80-96); MEAN PLT VOLUME 9.1 fl (7.5-11.1); MONO % 5.1 % (3.8-10.2); PLATELET COUNT 178 K/MM3 (134-434); RBC 2.97 M/mm3 (3.60-5.2); RDW 13.8 % (11.6-15.6)
[2018-07-02] MEDS: IBUPROFEN 600 MG TABLET (FP) PO PRN (00:52)
[2018-07-02] MEDS: SIMETHICONE 80 MG TAB.CHEW (FP) PO PRN (00:54)
[2018-07-02 08:12] VITALS: BP 111/71; PULSE 72; TEMP 98
--- NOTE | 2018-07-02 09:36 | DS ---
Physical Examination Vital Signs: Vital Signs Temperature 98.0 F 07/02/18 08:10 Pulse Rate 72 07/02/18 08:10 Respiratory Rate 18 07/02/18 08:10 Blood Pressure 111/71 07/02/18 08:10 O2 Sat by Pulse Oximetry (%) 100 06/28/18 16:15 Constitutional: Yes: Well Nourished Cardiovascular: Yes: WNL, Regular Rate and Rhythm Respiratory: Yes: WNL, Regular, CTA Bilaterally Gastrointestinal: Yes: WNL, Normal Bowel Sounds Edema: No Integumentary: Yes: WNL Wound/Incision: Yes: Clean/Dry, Well Approximated. No: Sutures Intact, [place] Intact, Steri Strips, Open to air, Dressing Dry and Intact, Dressing Removed, [place] Removed, Sutures Removed, Draining, Reddened, Bleeding, Excoriated, Unapproximated, Other Labs: CBC, BMP 07/01/18 07:00 06/28/18 05:20 Discharge Summary Reason For Visit: LABOR ADMIT Current Active Problems Advanced maternal age (AMA) in (Acute) Hep B complicating (Acute) Labor established (Acute) with 39 completed weeks gestation (Acute) Previous section complicating (Acute) Procedures: Principal: RLTCS Other Procedures: RLTCS Hospital Course: Patient presented in labor, attempted TOLAC She had a fever while in labor and pushed without descent She underwent a RLTCS She was maintained on Antibiotics for over 24hours She was discharged home on POD#4 Condition: Stable - Instructions Diet, Activity, Other Instructions: Regular Diet Referrals: Samantha Valero MD [Staff Physician] - Disposition: HOME - Home Medications Comprehensive Discharge Medication List: Ambulatory Orders Ferrous Sulfate [Iron] 1 tab PO DAILY 06/11/18 Pnv,Calcium 72/Iron/Folic Acid [ Plus Tablet] 1 tab PO DAILY 06/11/18 Ibuprofen 600 mg PO Q6H PRN #30 tablet 07/01/18
--- NOTE | 2018-07-03 15:08 | PATH ---
Surgical Pathology Report Patient Name: BOOKER CASTILLO Med. Rec. 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 Specimen(s) Received PLACENTA Clinical History at 39.3 weeks Final Diagnosis PLACENTA, SECTION: 643 G THIRD TRIMESTER PLACENTA WITH TRIVASCULAR UMBILICAL CORD AND MILD TO MODERATE ACUTE CHORIOAMNIONITIS. Electronically Signed Ashanti Justice M.D. Gross Description The specimen is received fresh labeled placenta and is a 643 gram, 19.0 x 16.5 x 3.3 cm. placenta with attached membranes and umbilical cord. The attached membranes are jiménez, translucent with focal opacities and insert marginally. The umbilical cord measures 17 cm. in length and averages 1.2 cm. in diameter. The cord inserts eccentrically, 3 cm. to the nearest margin. No true knots or strictures are identified. Cut surface of the umbilical cord reveals 3 vessels. The surface is kennedy-blue with minimal fibrin deposition and appropriate caliber vessels. The maternal surface is red-brown with focal defects. Sectioning reveals red-brown, spongy parenchyma. No lesions are identified. [employer] Itinerant Teacher sections are submitted in three cassettes as follows: 1- membrane rolls and umbilical cord; 2-3- full thickness sections of placenta. 06/30/201806/30/2018
--- NOTE | 2018-07-04 13:25 | OP ---
DATE OF OPERATION: 06/28/2018 PREOPERATIVE DIAGNOSIS: at term, previous section, in labor for vaginal after () and intrapartum fever. POSTOPERATIVE DIAGNOSIS: at term, previous section, in labor for vaginal after () and intrapartum fever. PROCEDURE: Repeat low segment transverse section. SURGEON: Sea Phan MD FIRST BREAKER FEEDER: RADHA Lovelace ANESTHESIA: Epidural. ESTIMATED BLOOD LOSS: 500 mL. DESCRIPTION OF PROCEDURE: The patient was taken to the operating room, had adequate epidural anesthesia. Abdomen and perineum were prepped and draped. Pfannenstiel abdominal skin incision was made. Abdominal wall was cut layer by layer until the peritoneum was exposed and incised. Upon entering the abdominal cavity, lower uterine segment was identified and uterovesical fold of peritoneum was established and bladder was pushed down. A low transverse uterine incision was made. Amniotic sac was entered. Clear. Head delivered from occiput posterior position. Nasopharynx was suctioned and live baby was delivered without difficulty. The placenta was delivered manually. Uterine cavity was cleaned of all remaining tissue. Uterine incision was closed using 2 layers, 1st layer with 0-Biosyn continuous suture, the 2nd layer with 0-Biosyn imbricating the 1st layer. Bladder flap was closed with 0-Biosyn continuous suture. Both tubes and ovaries were checked and normal. No active bleeding was seen. All the lap pad, sponge and instrument counts were correct. The peritoneum was closed with 0-Biosyn continuous sutures, muscles were brought together with interrupted suture of 0-Biosyn, the fascia was closed with 0-Biosyn continuous suture, subcutaneous fat with interrupted suture of 0-Biosyn and the skin was closed with wilbert. The patient tolerated the procedure well and left the OR in good condition. Calvin [id number]
== END 2018-07-02 14:20 | disposition home or self-care (01) | DRG 540 ==
LOC: JDEL 04:30 → JLDR 05:00 → J3W 17:00
PROVIDERS: ADMIT Obstetrics & Gynecology; ATTEND Obstetrics & Gynecology
PROC: 10D00Z1 Extraction of Products of Conception, Low, Open Approach (ICD-10-PCS; principal; 2018-06-28)
DX: O34.211 Maternal care for low transverse scar from previous cesarean delivery (principal); O41.1230 Chorioamnionitis, third trimester, not applicable or unspecified; B19.10 Unspecified viral hepatitis B without hepatic coma; O98.42 Viral hepatitis complicating childbirth; Z3A.39 39 weeks gestation of pregnancy; Z37.0 Single live birth; O75.2 Pyrexia during labor, not elsewhere classified
CPT/HCPCS: 36415; 36600; 71046-TC-FY; 80048; 82803; 85025; 85610; 85730; 86593; 86850; 86900; 86901; 88307-TC; J0131

== ENCOUNTER 2020-05-28 18:25 | Inpatient (IN) | payer OTHER ==
[2020-05-28] MEDS ORDERED: CITRIC ACID/SODIUM CITRATE 30 ML UNIT-DOSE CUP PO ONE (20:07)
[2020-05-28] MEDS ORDERED: morphine SULFATE/Preservative Free 0.5 MG/ML (1cc Syringe) ONE (20:13)
[2020-05-28] MEDS ORDERED: ceFAZolin SODIUM 1 GM VIAL ONE (20:13)
[2020-05-28] MEDS ORDERED: OXYTOCIN 20 UNITS in 0.9% NS 20 UNIT/1,000 ML INFUS.BAG IV ONE (20:13)
[2020-05-28] MEDS ORDERED: ELECTROLYTE-148 SOLN 1,000 ML IV SCH (20:15)
[2020-05-28] MEDS ORDERED: ePHEDrine SULFATE 50 MG/1 ML AMPULE ONE (20:17)
[2020-05-28 20:24] LABS: BASO % 0.5 % (0-2.0); EOS % 0.5 % (0-4.5); LYMPH % 24.3 % (8-40); MCH 31.2 pg (25.7-33.7); MCHC 34.1 g/dl (32.0-36.0); MEAN CELL VOLUME 91.5 fl (80-96); MEAN PLT VOLUME 9.8 fl (7.5-11.1); NEUT % 67.7 % (42.8-82.8); PLATELET COUNT 178 K/MM3 (134-434); RBC 4.16 M/mm3 (3.60-5.2); RDW 13.7 % (11.6-15.6); WHITE BLOOD COUNT 9.7 K/mm3 (4.0-10.0)
[2020-05-28] MEDS ORDERED: IBUPROFEN 800 MG/8 ML IJ IVPB PRN (20:24)
[2020-05-28] MEDS ORDERED: oxyCODONE HCL 5 MG TABLET PO PRN (20:24)
[2020-05-28] MEDS ORDERED: ONDANSETRON 4 MG/2 ML VIAL ONE (20:47)
[2020-05-28] MEDS ORDERED: OXYTOCIN 10 UNITS/ML VIAL ONE (20:47)
[2020-05-28] MEDS ORDERED: KETOROLAC TROMETHAMINE 30 MG/1 ML VIAL ONE (20:47)
[2020-05-28] MEDS ORDERED: SODIUM CHLORIDE 0.9% P/F 10 ML VIAL IJ ONE (20:47)
[2020-05-28 20:51] LABS: INR 0.95 (0.83-1.09); PROTHROMBIN TIME (PATIENT) 11.7 SEC (9.7-13.0)
[2020-05-28 20:52] LABS: POTASSIUM 4.2 mmol/L (3.5-5.1)
[2020-05-28 20:54] LABS: ACTIVATED PTT 28.9 SECONDS (25.2-36.5); BLOOD UREA NITROGEN 5.3 mg/dL (7-18); CALCIUM 9.5 mg/dL (8.5-10.1)
[2020-05-28] MEDS: OXYTOCIN 20 UNITS in 0.9% NS 20 UNIT/1,000 ML INFUS.BAG IV SCH (20:55)
[2020-05-28 20:57] LABS: CREATININE 0.5 mg/dL (0.55-1.3)
[2020-05-28] MEDS ORDERED: MISOPROSTOL 200 MCG TABLET ONE (22:05)
[2020-05-28] MEDS ORDERED: MISOPROSTOL 200 MCG TABLET PV ONE (22:05)
[2020-05-28] MEDS ORDERED: ONDANSETRON 4 MG/2 ML VIAL IVPUSH PRN (22:23)
[2020-05-28] MEDS ORDERED: METHYLERGONOVINE MALEATE 0.2 MG/1 ML AMP IM ONE (22:34)
[2020-05-28 23:01] VITALS: BMI 38.7
[2020-05-28 23:10] LABS: CORD BASE EXCESS -2.5 mmol/L (0-2); CORD HCO3 25.5 mmHg (20-29); CORD pH 7.268 (7.14-7.44)
[2020-05-28 23:12] LABS: CORD BASE EXCESS -3.5 mmol/L (0-2); CORD HCO3 26.8 mmHg (20-29); CORD PCO2 75.3 mmHg (30-78); CORD pH 7.17 (7.14-7.44)
[2020-05-29] MEDS: OXYTOCIN 20 UNITS in 0.9% NS 20 UNIT/1,000 ML INFUS.BAG IV SCH (00:15)
[2020-05-29] MEDS ORDERED: OXYTOCIN 20 UNITS in 0.9% NS 20 UNIT/1,000 ML INFUS.BAG IV ONE (00:15)
[2020-05-29] MEDS: METHYLERGONOVINE MALEATE 0.2 MG TABLET (FP) PO SCH ×5 (02:00→18:25)
[2020-05-29] MEDS: ACETAMINOPHEN 1000 MG/100 ML VIAL (NON FORMULARY) IVPB PRN ×2 (06:32→18:25)
[2020-05-29 08:34] LABS: BASO % 0.3 % (0-2.0); EOS % 0.1 % (0-4.5); HEMATOCRIT 25.3 % (32.4-45.2); HEMOGLOBIN 8.7 GM/dL (10.7-15.3); LYMPH % 9.8 % (8-40); MCH 31.5 pg (25.7-33.7); MCHC 34.3 g/dl (32.0-36.0); MEAN CELL VOLUME 91.8 fl (80-96); MEAN PLT VOLUME 9.8 fl (7.5-11.1); MONO % 6.9 % (3.8-10.2); NEUT % 82.9 % (42.8-82.8); PLATELET COUNT 143 K/MM3 (134-434); RBC 2.75 M/mm3 (3.60-5.2); RDW 13.7 % (11.6-15.6); WHITE BLOOD COUNT 12.8 K/mm3 (4.0-10.0)
[2020-05-29] MEDS ORDERED: CEFAZOLIN 1 GM/D5W 1 GM/50 ML BAG IVPB ONE (11:45)
[2020-05-29 19:56] LABS: BASO % 0.2 % (0-2.0); EOS % 0.1 % (0-4.5); HEMATOCRIT 22.7 % (32.4-45.2); HEMOGLOBIN 7.7 GM/dL (10.7-15.3); LYMPH % 8.9 % (8-40); MCH 31.4 pg (25.7-33.7); MCHC 33.9 g/dl (32.0-36.0); MEAN CELL VOLUME 92.4 fl (80-96); MEAN PLT VOLUME 9.2 fl (7.5-11.1); MONO % 6.1 % (3.8-10.2); NEUT % 84.7 % (42.8-82.8); PLATELET COUNT 150 K/MM3 (134-434); RBC 2.46 M/mm3 (3.60-5.2); RDW 13.8 % (11.6-15.6); WHITE BLOOD COUNT 13.1 K/mm3 (4.0-10.0)
[2020-05-29] MEDS ORDERED: BISACODYL 10 MG SUPP.RECT RC PRN (20:24)
[2020-05-30] MEDS: SIMETHICONE 80 MG TAB.CHEW (FP) PO PRN ×4 (00:24→18:18)
[2020-05-30] MEDS: ACETAMINOPHEN 325 MG TABLET (FP) PO PRN ×4 (00:24→18:17)
[2020-05-30] MEDS: IBUPROFEN 600 MG TABLET (FP) PO PRN ×3 (05:29→18:18)
[2020-05-30 07:56] LABS: BASO % 0.2 % (0-2.0); EOS % 0.1 % (0-4.5); HEMATOCRIT 19.6 % (32.4-45.2); LYMPH % 6.2 % (8-40); MCHC 35.4 g/dl (32.0-36.0); MEAN CELL VOLUME 90.5 fl (80-96); MEAN PLT VOLUME 8.9 fl (7.5-11.1); MONO % 7.2 % (3.8-10.2); NEUT % 86.3 % (42.8-82.8); PLATELET COUNT 148 K/MM3 (134-434); RBC 2.17 M/mm3 (3.60-5.2); WHITE BLOOD COUNT 12.7 K/mm3 (4.0-10.0)
[2020-05-30 08:31] LABS: HEMOGLOBIN 6.9 GM/dL (10.7-15.3)
[2020-05-31] MEDS: ACETAMINOPHEN 325 MG TABLET (FP) PO PRN ×3 (03:52→22:22)
[2020-05-31] MEDS: IBUPROFEN 600 MG TABLET (FP) PO PRN ×3 (03:53→22:23)
[2020-05-31] MEDS: SIMETHICONE 80 MG TAB.CHEW (FP) PO PRN ×3 (03:53→22:22)
[2020-05-31 07:11] LABS: HBsAG CONFIRMATION Positive (.)
[2020-05-31 08:32] LABS: BASO % 0.4 % (0-2.0); EOS % 0.2 % (0-4.5); HEMATOCRIT 26.9 % (32.4-45.2); LYMPH % 11.7 % (8-40); MCHC 33.6 g/dl (32.0-36.0); MEAN CELL VOLUME 86.1 fl (80-96); MEAN PLT VOLUME 8.6 fl (7.5-11.1); MONO % 5.3 % (3.8-10.2); NEUT % 82.4 % (42.8-82.8); PLATELET COUNT 184 K/MM3 (134-434); RBC 3.12 M/mm3 (3.60-5.2); RDW 19.4 % (11.6-15.6)
[2020-05-31] MEDS ORDERED: MINERAL OIL ENEMA 133 ML ENEMA PR ONE (10:15)
[2020-06-01] MEDS: ACETAMINOPHEN 325 MG TABLET (FP) PO PRN (04:46)
[2020-06-01] MEDS: IBUPROFEN 600 MG TABLET (FP) PO PRN (04:47)
[2020-06-01] MEDS ORDERED: SIMETHICONE 40 MG/0.6 ML BOTTLE PO PRN (09:09)
[2020-06-01] MEDS ORDERED: MINERAL OIL ENEMA 133 ML ENEMA RC ONE (09:09)
[2020-06-01 11:13] VITALS: BP 135/81; PULSE 95; TEMP 98.6
== END 2020-06-01 16:15 | disposition home or self-care (01) | DRG 540 ==
LOC: JDEL 18:25 → JLDR 19:30 → J3W 05-29 00:30
PROVIDERS: ADMIT Student in an Organized Health Care Education/Training Program; ATTEND Student in an Organized Health Care Education/Training Program
PROC: 10D00Z1 Extraction of Products of Conception, Low, Open Approach (ICD-10-PCS; principal; 2020-05-28)
PROC: 30233N1 Transfusion of Nonautologous Red Blood Cells into Peripheral Vein, Percutaneous Approach (ICD-10-PCS; 2020-05-30)
DX: O34.211 Maternal care for low transverse scar from previous cesarean delivery (principal); O32.1XX0 Maternal care for breech presentation, not applicable or unspecified; O34.13 Maternal care for benign tumor of corpus uteri, third trimester; D25.9 Leiomyoma of uterus, unspecified; O99.03 Anemia complicating the puerperium; D64.89 Other specified anemias; D57.3 Sickle-cell trait; O98.419 Viral hepatitis complicating pregnancy, unspecified trimester; B18.1 Chronic viral hepatitis B without delta-agent; Z3A.38 38 weeks gestation of pregnancy; Z37.0 Single live birth
CPT/HCPCS: 36415; 36430; 36511; 36600; 71045-TC-FY; 74021-TC-FY; 80048; 82803; 85025; 85610; 85730; 86762; 86850; 86900; 86901; 86922; 87340; 88304-TC; 88307-TC; J0131; P9016; P9038; P9058

== ENCOUNTER 2024-08-04 14:47 | Emergency (ER) | payer OTHER ==
[2024-08-04 14:55] VITALS: BP 121/66; TEMP 98.5; BMI 34.9
[2024-08-04 15:43] VITALS: PULSE 51; RESP 22
[2024-08-04] MEDS ORDERED: MECLIZINE HCL 25 MG TABLET (FP) ONE (15:51)
[2024-08-04] MEDS: MECLIZINE HCL 25 MG TABLET (FP) PO ONE (15:56)
[2024-08-04 16:10] LABS: ABSOLUTE IMMATURE GRANULOCYTES 0.01 x10^3/uL (0.0-0.031); MCHC 33.6 g/dl (32.2-35.5)
[2024-08-04 16:11] LABS: BASOPHILS # 0.05 x10^3/uL (0.01-0.08); EOSINOPHIL % 1.9 % (0.7-5.8); EOSINOPHILS # 0.15 x10^3/uL (0.04-0.36); HEMATOCRIT 36.6 % (34.1-44.9); HEMOGLOBIN 12.3 g/dL (11.2-15.7); MEAN CELL VOLUME 87.6 fl (79.4-94.8); MEAN PLT VOLUME 11.5 fl (9.4-12.3); MONOCYTE # 0.55 x10^3/uL (0.24-0.86); MONOCYTE % 7.1 % (4.7-12.5); PLATELET COUNT 162 x10^3/uL (182-369); RDW 12.9 % (12.2-17.1)
[2024-08-04] MEDS: SODIUM CHLORIDE 0.9% 500 ML INFUS.BAG IV ONE (16:11)
[2024-08-04 16:35] LABS: ALBUMIN 3.2 g/dl (3.4-5.0)
[2024-08-04 16:36] LABS: BLOOD UREA NITROGEN 7.9 mg/dL (7-18); CALCIUM 9.6 mg/dL (8.5-10.1)
[2024-08-04 16:40] LABS: CREATININE 0.6 mg/dL (0.55-1.3)
[2024-08-04 16:41] LABS: BILIRUBIN,TOTAL 0.3 mg/dL (0.2-1); TOT PROT 6.3 g/dl (6.4-8.2)
[2024-08-04] MEDS ORDERED: diazePAM 5 MG TABLET ONE (17:13)
[2024-08-04] MEDS: diazePAM CARPU-JECT 10 MG/2 ML DISP.SYRIN IVPUSH ONE (17:15)
== END 2024-08-04 19:07 | disposition home or self-care (01) ==
LOC: JER 14:47
PROC: 3E033GC Introduction of Other Therapeutic Substance into Peripheral Vein, Percutaneous Approach (ICD-10-PCS; principal; 2024-08-04)
DX: G93.89 Other specified disorders of brain (principal); R42 Dizziness and giddiness
CPT/HCPCS: 36415; 70450-TC; 80053; 84439; 84443; 84703; 85025; 93005; 93010; 99285-25

== ENCOUNTER 2024-10-28 12:32 | Emergency (ER) | payer OTHER ==
[2024-10-28 12:37] VITALS: BP 124/73; PULSE 72; RESP 18; TEMP 98.3; BMI 30.2
[2024-10-28 13:43] LABS: HCG,QUALITATIVE URINE Negative
[2024-10-28 13:44] LABS: EPI CELLS >36 /uL (0-25.1); HYALINE CASTS 2 /uL (0-3.1); URINE APPEARANCE CLOUDY; URINE BACTERIA 673 /uL (0-1359); URINE BILIRUBIN 1+ (NEGATIVE); URINE COLOR DK YELLOW; URINE GLUCOSE (UA) NEGATIVE (NEGATIVE); URINE KETONE NEGATIVE (NEGATIVE); URINE LEUK ESTERASE 2+ (NEGATIVE); URINE NITRITE NEGATIVE (NEGATIVE); URINE PROTEIN TRACE (NEGATIVE); URINE RBC 36 /uL (0-23.9); URINE UROBILINOGEN 1.0 mg/dL (0.2-1.0); URINE WBC 115 /uL (0-25.8)
== END 2024-10-28 14:10 | disposition home or self-care (01) ==
LOC: JERFT 12:32 → JER 12:32 → JERFT 14:10
DX: N39.0 Urinary tract infection, site not specified (principal); R68.83 Chills (without fever); R82.998 Other abnormal findings in urine; R53.81 Other malaise
CPT/HCPCS: 81003; 84703; 87086; 99283-25